=== PATIENT | female | born 1965 | race Caucasian/White ===

== ENCOUNTER → 2016-08-25 | Outpatient (CLI) | payer BC ==
[~2016-08-25] MED LIST: FLVUNK; METH7.5T PO; PRED-301; SULF800T23 PO
== END | disposition home or self-care (01) ==
LOC: C.MAMM 07:48
PROVIDERS: ATTEND Internal Medicine
DX: M81.0 Age-related osteoporosis without current pathological fracture (principal); M85.851 Other specified disorders of bone density and structure, right thigh; M85.852 Other specified disorders of bone density and structure, left thigh; M85.88 Other specified disorders of bone density and structure, other site

== ENCOUNTER → 2017-02-18 | Outpatient (CLI) | payer BC ==
--- NOTE | 2017-02-18 16:52 | DIAGNOSTIC IMAGING REPORT ---
CT RIGHT ANKLE NO CONTRAST CT DOSE: 215.71 mGy.cm CLINICAL HISTORY: RT ANKLE PAIN TECHNIQUE: Helical images were acquired in the transverse plane. Sagittal and coronal reformatted imaging was acquired. A dose lowering technique was utilized adhering to the principles of ALARA. COMPARISON STUDY: Conventional radiographic study dated 12/17/2005 FINDINGS: There are postsurgical changes of a hindfoot fusion. There is a cannulated screw traversing the tibiotalar joint. There are 2 screws traversing the talus navicular joint. There are 2 screws traversing the calcaneocuboid articulation. Bony fusion appears successful. There is a small joint effusion involving the ankle. There is marked narrowing of the tibiotalar joint with subchondral sclerosis. There are extensive subchondral cystic changes within the talus and distal tibia, likely on an osteoarthritic basis. Within the soft tissues adjacent to the plantar aspect of the posterior calcaneus, there is a complex septated fluid collection measuring 4.8 x 3.5 x 2.5 cm. While nonspecific, this may represent adventitious bursa. No acute fractures are visualized. IMPRESSION: 1. Postsurgical changes of a hindfoot fusion 2. Joint effusion involving the ankle 3. 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 There are extensive subchondral cystic lesions within the distal tibia and talus, likely on arthritic basis 4. Complex septated fluid collection adjacent to the plantar aspect of the posterior calcaneus. While nonspecific, this may represent adventitious bursa. Electronically signed by: David Dan M.D. 02/18/2017 4:51 PM Dictated Date/Time: 02/18/2017 4:41 PM
== END | disposition home or self-care (01) ==
LOC: C.CTS 16:16
PROVIDERS: ATTEND Orthopaedic Surgery Sports Medicine
DX: M25.571 Pain in right ankle and joints of right foot (principal)